=== PATIENT | female | born 1975 | race Caucasian/White ===

== ENCOUNTER 2017-06-13 23:14 | Emergency (ER) | payer SELFPAY ==
[~2017-06-13] VITALS: Ht 162.6 cm; Wt 80.0 kg
[2017-06-13] MEDS ORDERED: LEVO75 PO (23:18)
[2017-06-14] MEDS ORDERED: ONDANSETRON HCL 4 MG TABLET PO ONE
[2017-06-14 03:44] VITALS: BP 105/67
== END 2017-06-14 03:45 | disposition home or self-care (01) ==
LOC: EMS 23:18
DX: F10.129 Alcohol abuse with intoxication, unspecified (principal); R11.2 Nausea with vomiting, unspecified; E03.9 Hypothyroidism, unspecified; F12.10 Cannabis abuse, uncomplicated
CPT/HCPCS: 99283; Q0162